=== PATIENT | female | born 1960 | race Caucasian/White ===

== ENCOUNTER 2020-03-16 07:59 | Day surgery (SDC) | payer MEDICAID ==
[2020-03-09 15:07] LABS: BASOPHILS # (AUTO) 0.1 X10'3 (0-0.2); BASOPHILS % (AUTO) 0.5 % (0-1); EOSINOPHILS # (AUTO) 0.2 X10'3 (0-0.9); EOSINOPHILS % (AUTO) 1.6 % (0-6); LYMPHOCYTES % (AUTO) 26.4 % (21-51); MEAN CORPUSCULAR HEMOGLOBIN 30.6 PG (27.0-31.0); MEAN CORPUSCULAR HGB CONC 33.2 g/dL (33.0-36.5); MEAN CORPUSCULAR VOLUME 92.3 FL (78-98); MEAN PLATELET VOLUME 7.9 FL (7.4-10.4); MONOCYTES # (AUTO) 0.9 X10'3 (0-0.9); MONOCYTES % (AUTO) 5.8 % (2-12); NEUTROPHILS % (AUTO) 65.7 % (42-75); PRE OP HEMATOCRIT 45.8 % (35.0-45.0); PRE OP HEMOGLOBIN 15.2 g/dL (12.0-16.0); PRE OP PLATELET COUNT 347 X10'3 (140-440); RED BLOOD COUNT 4.96 X10'6 (4.20-5.60); RED CELL DISTRIBUTION WIDTH 13.5 % (11.5-14.5)
[2020-03-09 15:24] LABS: ALBUMIN 3.7 G/DL (3.4-5.0); ALBUMIN/GLOBULIN RATIO 0.9 (1.1-1.5); ALKALINE PHOSPHATASE 93 IU/L (46-116); BLOOD UREA NITROGEN 17 MG/DL (7-18); BUN/CREATININE RATIO 19.8 (6.6-38.0); CALCIUM 9.3 MG/DL (8.5-10.1); CHLORIDE 102 MMOL/L (99-107); CREATININE 0.86 MG/DL (0.40-0.90); PRE OP ALT 26 U/L (30-65); PRE OP ANION GAP 6 (8-16); PRE OP AST 13 U/L (10-37); PRE OP BILIRUB, TOTAL 0.5 MG/DL (0.0-1.0); PRE OP GLUCOSE 142 MG/DL (70-104); PRE OP POTASSIUM 4.4 MMOL/L (3.4-5.1); PRE OP SODIUM 139 MMOL/L (135-145); TOTAL CARBON DIOXIDE 30.6 MMOL/L (24-32); TOTAL PROTEIN 7.8 G/DL (6.4-8.2); eGFR 68 ML/MIN
[2020-03-09 15:26] LABS: HEMOGLOBIN A1C 8.2 % (4.5-6.2)
[~2020-03-16] VITALS: Ht 177.8 cm; Wt 169.6 kg
[~2020-03-16 07:59] MED LIST: ALBUTEROL; AMA1T PO; AMIT25TA10 PO; ASPI81TA47 PO; ATOR20TA66 PO; DOCU-148 PO; FLUT100D2 INH; GLYB5TAB7 PO; HYDROCODONE; LEVO75TA7 PO; LORA-660 PO; METF1000 PO; MONT10TA26 PO; OLME1TAB21 PO; SPIR25TA5 PO; TIOT18CA3; VERA360C2 PO; albuterol 2.5 MG/3 ML nebule NEB ONE; ceFAZolin inj. 3,000 MG in normal saline 100ml IV soln 100 ML IV ONE; famotidine 20mg tablet PO ONE; ringers solution, lacted 1,000 ML IV SCH
[2020-03-16 08:05] VITALS: BP 146/80
[2020-03-16] MEDS ORDERED: BUPIVAcaine/PF 2.5mg/ml (0.25%) 10ml vial ONE ×2 (08:51→11:08)
[2020-03-16] MEDS ORDERED: midazolam 2 mg/2 ml injection ONE (11:18)
[2020-03-16] MEDS ORDERED: fentaNYL/PF 50MCG/1 ML 2ML syringe ONE (11:18)
[2020-03-16] MEDS ORDERED: acetaminophen 1,000mg/100ml IV 100 ML IV PRN (11:20)
[2020-03-16] MEDS ORDERED: proCHLORperazine 10 MG/2 ml inj IV PRN (11:20)
[2020-03-16] MEDS ORDERED: meperidine/PF 25mg/ml syringe IV PRN (11:20)
[2020-03-16] MEDS ORDERED: morphine 2 MG/ML inj. syringe IV PRN (11:20)
[2020-03-16] MEDS ORDERED: morphine 4 MG/ML inj SYRINge IV PRN (11:20)
[2020-03-16] MEDS ORDERED: fentaNYL/PF 50MCG/1 ML 2ML syringe IV PRN ×2 (11:20)
[2020-03-16] MEDS ORDERED: ringers solution, lacted 1,000 ML IV SCH (11:20)
[2020-03-16] MEDS ORDERED: ondansetron/PF 4mg/2ml inj IV PRN (11:20)
[2020-03-16] MEDS ORDERED: propofol inj 20 ML IV ONE ×2 (11:55)
[2020-03-16 12:04] VITALS: BP 111/51
--- NOTE | 2020-03-16 12:04 | NUR ---
Received from OR via [facility], accompanied by Anesthesiologist DR Dominique and report given by Anesthesiolgist. PATIENT A&OX4, DENIES PAIN, V/S WNL, NEUROVASCULAR CHECKS INTACT, SCD ON, LEFT WRIST DRESSING CDI ELEVATED WITH ICE BAG APPLIED. 20G right wrist
--- NOTE | 2020-03-16 12:44 | NUR ---
PT DISCHARGED TO WHEELCHAIR WITHOUT INCIDENT. PATIENT A&OX4, DENIES PAIN, V/S WNL, NEUROVASCULAR CHECKS INTACT, 20G PIV D/C, SCD OFF, DRESSING TO LEFT WRIST and RIGHT MIDDLE FINGER CDI ELEVATED WITH ICEBAG APPLIED. I HAVE REVIEWED D/C INSTRUCTIONS WITH PATIENT AND FAMILY AND THEY HAVE VERBALIZED UNDERSTANDING. PATIENT D/C HOME WITH ALL BELONGINGS AND FAMILY GAVE TRANSPORT HOME. PT HAS PAIN MEDS AT HOME.
== END 2020-03-16 12:44 | disposition home or self-care (01) ==
LOC: PAS 07:59
PROVIDERS: ATTEND Orthopaedic Surgery Hand Surgery
DX: M67.432 Ganglion, left wrist (principal); M67.431 Ganglion, right wrist; J44.9 Chronic obstructive pulmonary disease, unspecified; E11.9 Type 2 diabetes mellitus without complications; I10 Essential (primary) hypertension; E03.9 Hypothyroidism, unspecified; E66.01 Morbid (severe) obesity due to excess calories; Z68.43 Body mass index [BMI] 50.0-59.9, adult; Z87.891 Personal history of nicotine dependence; Z90.710 Acquired absence of both cervix and uterus; Z79.899 Other long term (current) drug therapy; Z79.84 Long term (current) use of oral hypoglycemic drugs; Z79.82 Long term (current) use of aspirin; Z82.49 Family history of ischemic heart disease and other diseases of the circulatory system; Z11.59 Encounter for screening for other viral diseases
CPT/HCPCS: 25111; 26160; 36415; 80053; 82948; 83036; 84443; 85025; 93005; A6222; J0690; J2250; J2704; J3010; J3490; U0003; A4215; A6449; A7000; J7120